=== PATIENT | male | born 1980 | race Caucasian/White ===

== ENCOUNTER 2017-09-08 05:52 | Inpatient (IN) | payer BC ==
[2017-09-08] MEDS ORDERED: Sodium Chloride 0.9% 10 ML Syringe FLUSH PRN ×2 (06:01→09:36)
[2017-09-08] MEDS ORDERED: methylPREDNISolone Sodium Succinate 125 MG/2 ML SDV IVPUSH ONE (06:02)
[2017-09-08] MEDS ORDERED: Albuterol/Ipratropium 3.0-0.5 MG/3 ML Neb Soln NEB ONE (06:02)
[2017-09-08] MEDS ORDERED: Sodium Chloride 0.9% 1,000 ML IV ONE (06:02)
[2017-09-08] MEDS: Sodium Chloride 0.9% 2.5 ML Syringe FLUSH PRN (06:07)
--- NOTE | 2017-09-08 06:08 | EDM.PDOC ---
ED HPI GENERAL MEDICAL PROBLEM - General Chief Complaint: Respiratory Problem Stated Complaint: TROUBLE BREATHING Time Seen by Provider: 09/08/17 05:57 - History of Present Illness INITIAL COMMENTS - FREE TEXT/NARRATIVE: HISTORY AND PHYSICAL: History of present illness: The patient is a 37-year-old male who arrives via EMS after he called for extreme shortness of breath and wheezing. Patient has a long-standing history of asthma but has not had to use steroids for the last 2-3 years due to reasonably good control on albuterol inhaler and nebulizer treatments. The patient does not use any maintenance therapy. The patient is not a smoker is around smokers at times. The patient is from [facility] and is here working and has been here for the last 1 week. He says over the last few days he has been having progressive dry hacking cough and increased wheezing and shortness of breath. He did not bring his nebulizer machine with him but has is inhaler and he has used it all. Patient has not had fevers vomiting abdominal pain chest pain diarrhea runny nose or sore throat. He is not sure what the trigger is that set off his asthma. His cough has been very dry and hacking and there has not been any phlegm. He has been trying to hydrate but he admits that he has been drinking caffeine as well. The patient did not get his influenza shot this year. EMS brought him here and his initial O2 sat on room air was 80% . He gave to uzair iyer in route and placed him on BiPAP removed on arrival here. Currently the patient says he started feeling better but still very tight with his air exchange and still feeling the wheezing and shortness of breath. Review of systems: As per history of present illness and below otherwise all systems reviewed and negative. Past medical history: As per history of present illness and as reviewed below otherwise noncontributory. Surgical history: As per history of present illness and as reviewed below otherwise noncontributory. Social history: No reported history of drug or alcohol abuse. Family history: As per history of present illness and as reviewed below otherwise noncontributory. Physical exam: General: Well-developed well-nourished man who is nontoxic and not breathless on my evaluation. His O2 sat on 5 L is 92-94%. Initially when the patient arrived he was on BiPAP which was removed by nursing and his room air O2 sat for us was 90%. HEENT: Atraumatic, normocephalic, pupils reactive, negative for conjunctival pallor or scleral icterus, mucous membranes moist, throat clear, neck supple, nontender, trachea midline. No cervical adenopathy or nuchal rigidity Lungs: Diminished air exchange throughout all lopez with expiratory wheezing but no abdominal worker breathing or intercostal muscle use breath sounds equal bilaterally, chest nontender. Heart: S1S2, regular rate and rhythm no overt murmurs Abdomen: Soft, nondistended, nontender. Negative for masses or hepatosplenomegaly. NABS Pelvis: Deferred Genitourinary: Deferred. Rectal: Deferred. Extremities: Atraumatic, negative for cords or calf pain. Neurovascular unremarkable. Full range of motion Neuro: Awake, alert, oriented. Cranial nerves II through XII unremarkable. Cerebellum unremarkable. Motor and sensory unremarkable throughout. Exam nonfocal. Skin: There is no diaphoresis and turgor is normal. There are no overt rashes or lesions Diagnostics: CBC CMP chest x-ray influenza swab EKG lactic acid Therapeutics: IV O2 monitor IV fluids Solu-Medrol duo neb 0625: After a third DuoNeb here the patient's O2 sat is 96% on 5 L and he is opening up with much more wheezing and air exchange throughout all lopez. He is currently feeling better and he is not tachycardic. I will rediscuss with him on 2 occasions that he will likely need observation admission for aggressive respiratory care steroids and further evaluation and he is comfortable with the admission. I will discuss this case with our hospitalist for observation. 0642: Case was discussed with Dr. Clifford who accepts the patient for observation admission. The patient is resting comfortably and will be transferred to his room once available. Impression: Acute asthma exacerbation with hypoxia Definitive disposition and diagnosis as appropriate pending reevaluation and review of above. neck Pain Score (Numeric/FACES): 6 - Related Data Allergies Allergy/AdvReac Type Severity Reaction Status Date / Time Penicillins Allergy Cannot Verified 09/08/17 06:07 Remember Home Meds: Home Meds Albuterol Sulfate [Ventolin Hfa] 0 gm IH ASDIRECTED 09/08/17 [History] Fexofenadine [Shavonne] 0 mg PO ASDIRECTED 09/08/17 [History] Nasocort 09/08/17 [History] Omeprazole 20 mg PO DAILY 09/08/17 [History] ED ROS GENERAL - Review of Systems Review Of Systems: ROS reveals no pertinent complaints other than HPI. ED EXAM, GENERAL - Physical Exam Exam: See Below (See dictation) Course - Vital Signs Last Recorded V/S: Last Vital Signs Temp 36.6 C 09/08/17 05:53 Pulse 92 09/08/17 06:15 Resp 21 H 09/08/17 06:15 BP 110/80 09/08/17 06:15 Pulse Ox 97 09/08/17 06:15 - Orders/Labs/Meds Orders: Active Orders 24 hr Category Date Time Status Patient Status [ADT] Stat ADT 09/08/17 06:28 Active Cardiac Monitoring [RC] . DIRECTED Care 09/08/17 06:01 Active EKG Documentation Completion [RC] STAT Care 09/08/17 06:01 Active Oxygen Therapy, ED [RC] ASDIRECTED Care 09/08/17 06:01 Active Pulse Oximetry [RC] ASDIRECTED Care 09/08/17 06:01 Active RT Aerosol Therapy [RC] ASDIRECTED Care 09/08/17 06:02 Active Chest 1V Frontal [CR] Stat Exams 09/08/17 06:01 Taken COMPREHENSIVE METABOLIC PN,CMP [CHEM] Stat Lab 09/08/17 06:17 Received Sodium Chloride 0.9% [Normal Saline] 1,000 ml Med 09/08/17 06:45 Active IV ASDIRECTED Sodium Chloride 0.9% [Normal Saline] 1,000 ml Med 09/08/17 06:02 Active IV STAT Sodium Chloride 0.9% [Saline Flush] Med 09/08/17 06:01 Active 10 ml FLUSH ASDIRECTED PRN Sodium Chloride 0.9% [Saline Flush] Med 09/08/17 06:01 Active 2.5 ml FLUSH ASDIRECTED PRN Saline Lock Insert [OM.PC] Stat Oth 09/08/17 06:01 Ordered Medication Orders Sodium Chloride (Normal Saline) 1,000 mls @ 999 mls/hr IV STAT ONE Stop: 09/08/17 07:02 Last Admin: 09/08/17 06:07 Dose: 999 mls/hr Sodium Chloride (Normal Saline) 1,000 mls @ 150 mls/hr IV ASDIRECTED DENNY Sodium Chloride (Saline Flush) 10 ml FLUSH ASDIRECTED PRN PRN Reason: Keep Vein Open Last Admin: 09/08/17 06:07 Dose: 10 ml Sodium Chloride (Saline Flush) 2.5 ml FLUSH ASDIRECTED PRN PRN Reason: Keep Vein Open Last Admin: 09/08/17 06:07 Dose: 2.5 ml Labs: Laboratory Tests 09/08/17 09/08/17 Range/Units 06:17 06:17 WBC 12.57 H (4.0-11.0) K/uL RBC 5.18 (4.50-5.90) M/uL Hgb 16.4 (13.0-17.0) g/dL Hct 46.9 (38.0-50.0) % MCV 90.5 (80.0-98.0) fL MCH 31.7 (27.0-32.0) pg MCHC 35.0 (31.0-37.0) g/dL RDW Std Deviation 44.6 (28.0-62.0) fl RDW Coeff of Mckenzie 14 (11.0-15.0) % Plt Count 179 (150-400) K/uL MPV 9.40 (7.40-12.00) fL Neut % (Auto) 68.7 (48.0-80.0) % Lymph % (Auto) 15.2 L (16.0-40.0) % [place] % (Auto) 5.2 (0.0-15.0) % Eos % (Auto) 10.3 H (0.0-7.0) % Baso % (Auto) 0.6 (0.0-1.5) % Neut # (Auto) 8.6 H (1.4-5.7) K/uL Lymph # (Auto) 1.9 (0.6-2.4) K/uL [place] # (Auto) 0.7 (0.0-0.8) K/uL Eos # (Auto) 1.3 H (0.0-0.7) K/uL Baso # (Auto) 0.1 (0.0-0.1) K/uL Nucleated RBC % 0.0 /100WBC Nucleated RBCs # 0 K/uL Lactate 1.2 (0.20-2.00) mmol/L Meds: Medications Generic Name Dose Route Start Last Admin Trade Name Freq PRN Reason Stop Dose Admin Sodium Chloride 1,000 mls @ 999 mls/hr 09/08/17 06:02 09/08/17 06:07 Normal Saline IV 09/08/17 07:02 999 mls/hr STAT ONE Administration Sodium Chloride 1,000 mls @ 150 mls/hr 09/08/17 06:45 Normal Saline IV ASDIRECTED DENNY Sodium Chloride 10 ml 09/08/17 06:01 09/08/17 06:07 Saline Flush FLUSH 10 ml ASDIRECTED PRN Administration Keep Vein Open Sodium Chloride 2.5 ml 09/08/17 06:01 09/08/17 06:07 Saline Flush FLUSH 2.5 ml ASDIRECTED PRN Administration Keep Vein Open Discontinued Medications Generic Name Dose Route Start Last Admin Trade Name Freq PRN Reason Stop Dose Admin Albuterol/Ipratropium 3 ml 09/08/17 06:02 09/08/17 06:08 Duoneb 3.0-0.5 Mg/3 Ml NEB 09/08/17 06:03 3 ml ONETIME ONE Administration Methylprednisolone Sodium Succinate 125 mg 09/08/17 06:02 09/08/17 06:09 Solu-Medrol IVPUSH 09/08/17 06:03 125 mg ONETIME ONE Administration Departure - Departure Time of Disposition: 06:47 Disposition: Refer to Observation Condition: Good Clinical Impression: Hypoxia Acute asthma exacerbation Qualifiers: Asthma severity: unspecified severity Asthma persistence: unspecified Qualified Code(s): J45.901 - Unspecified asthma with (acute) exacerbation - Discharge Information Referrals: PCP,None [Primary Care Provider] - Forms: ED Department Discharge - My Orders Last 24 Hours: My Active Orders 09/08/17 06:01 Cardiac Monitoring [RC] . DIRECTED EKG Documentation Completion [RC] STAT Oxygen Therapy, ED [RC] ASDIRECTED Pulse Oximetry [RC] ASDIRECTED Chest 1V Frontal [CR] Stat Sodium Chloride 0.9% [Saline Flush] 10 ml FLUSH ASDIRECTED PRN Sodium Chloride 0.9% [Saline Flush] 2.5 ml FLUSH ASDIRECTED PRN Saline Lock Insert [OM.PC] Stat 09/08/17 06:02 RT Aerosol Therapy [RC] ASDIRECTED Sodium Chloride 0.9% [Normal Saline] 1,000 ml IV STAT 09/08/17 06:17 COMPREHENSIVE METABOLIC PN,CMP [CHEM] Stat 09/08/17 06:28 Patient Status [ADT] Stat 09/08/17 06:45 Sodium Chloride 0.9% [Normal Saline] 1,000 ml IV ASDIRECTED - Assessment/Plan Last 24 Hours: My Active Orders 09/08/17 06:01 Cardiac Monitoring [RC] . DIRECTED EKG Documentation Completion [RC] STAT Oxygen Therapy, ED [RC] ASDIRECTED Pulse Oximetry [RC] ASDIRECTED Chest 1V Frontal [CR] Stat Sodium Chloride 0.9% [Saline Flush] 10 ml FLUSH ASDIRECTED PRN Sodium Chloride 0.9% [Saline Flush] 2.5 ml FLUSH ASDIRECTED PRN Saline Lock Insert [OM.PC] Stat 09/08/17 06:02 RT Aerosol Therapy [RC] ASDIRECTED Sodium Chloride 0.9% [Normal Saline] 1,000 ml IV STAT 09/08/17 06:17 COMPREHENSIVE METABOLIC PN,CMP [CHEM] Stat 09/08/17 06:28 Patient Status [ADT] Stat 09/08/17 06:45 Sodium Chloride 0.9% [Normal Saline] 1,000 ml IV ASDIRECTED
[2017-09-08 06:45] LABS: CHLORIDE,CL 108 mmol/L (98-110); SODIUM,NA 143 mmol/L (136-146)
[2017-09-08] MEDS ORDERED: Sodium Chloride 0.9% 1,000 ML IV SCH (06:45)
[2017-09-08] MEDS ORDERED: predniSONE 20 MG Tab PO SCH (08:00)
--- NOTE | 2017-09-08 08:49 | PCM.HP ---
H&P History of Present Illness - General Date of Service: 09/08/17 Admit Problem/Dx: Admission Diagnosis/Problem Admission Diagnosis/Problem Asthma in adult Source of Information: Patient History Limitations: Reports: No Limitations - History of Present Illness Initial Comments - Free Text/Narative: Ignacio is a 37-year-old male who is being admitted today secondary to acute asthma exacerbation. Patient was brought in via EMS on BiPAP secondary to severe respiratory difficulty. However while in the ER he was taken off BiPAP he was given some albuterol 125 mg, as well as duo nebs which didn't help bring his shortness of breath under control. Patient states that he has had asthma since childhood however he cannot recall the last time he ever had a acute asthma exacerbation such as the one he is experienced during this admission. Patient states that his symptoms started over the weekend. His only asthma medication is albuterol which she very rarely requires, he is not on any maintenance therapy patient states that over the course of the last 3 days he's been requiring albuterol constantly almost every 4 hours and more so at night. He did not have any resolution of his symptoms with the albuterol and it was so severe to the point today where he required EMS service. He does not know of any allergic trigger that exacerbated his asthma. He states that he does not smoke and does not drink or take any other illicit drugs. His only other medication is a PPI secondary to gastroesophageal reflux disease. ER course: She received 1 dose of duo nebs, IV Solu-Medrol 125 mg dose, and was subsequently admitted to the floor. Onset of Symptoms: Reports: Sudden neck Pain Score (Numeric/FACES): 6 - Related Data Allergies/Adverse Reactions: Allergies Allergy/AdvReac Type Severity Reaction Status Date / Time Penicillins Allergy Cannot Verified 09/08/17 06:07 Remember Home Medications: Home Meds Albuterol Sulfate [Ventolin Hfa] 0 gm IH ASDIRECTED 09/08/17 [History] Fexofenadine [Shavonne] 0 mg PO ASDIRECTED 09/08/17 [History] Nasocort 09/08/17 [History] Omeprazole 20 mg PO DAILY 09/08/17 [History] Past Medical History - Past Health History Medical/Surgical History: Denies Medical/Surgical History Respiratory History: Reports: Asthma Gastrointestinal History: Reports: GERD - Infectious Disease History Infectious Disease History: Reports: Chicken Pox - Past Surgical History GI Surgical History: Reports: Appendectomy Musculoskeletal Surgical History: Reports: Other (See Below) Other Musculoskeletal Surgeries/Procedures:: ankle sx Social & Family History - Family History Family Medical History: Noncontributory - Tobacco Use Smoking Status *Q: Never Smoker Second Hand Smoke Exposure: No - Caffeine Use Caffeine Use: Reports: Coffee, Energy Drinks, Soda, Tea - Recreational Drug Use Recreational Drug Use: No H&P Review of Systems - Review of Systems: Review Of Systems: ROS reveals no pertinent complaints other than HPI. Exam - Exam Exam: See Below - Vital Signs Vital Signs: Last Vital Signs Temp 36.6 C 09/08/17 07:45 Pulse 93 09/08/17 07:50 Resp 12 09/08/17 07:50 BP 127/82 09/08/17 07:50 Pulse Ox 93 L 09/08/17 07:50 Weight: 93.304 kg - Exam Quality Assessment: Supplemental Oxygen General: Alert, Oriented, Cooperative, Mild Distress HEENT: Conjunctiva Clear, EOMI Neck: Supple Lungs: Wheezing Cardiovascular: Regular Rate, Regular Rhythm GI/Abdominal Exam: Normal Bowel Sounds Extremities: Normal Inspection, Normal Range of Motion - Patient Data Result Diagrams: 09/08/17 06:17 09/08/17 06:17 *Q Meaningful Use (ADM) - VTE *Q VTE Criteria *Q: - Stroke *Q Stroke Criteria *Q: - AMI *Q AMI Criteria *Q: - Problem List (1) Acute asthma exacerbation SNOMED Code(s): 471133819 ICD Code: J45.901 - UNSPECIFIED ASTHMA WITH (ACUTE) EXACERBATION Status: Acute Current Visit: Yes Qualifiers: Asthma severity: unspecified severity Asthma persistence: unspecified Qualified Code(s): J45.901 - Unspecified asthma with (acute) exacerbation (2) Hypoxia SNOMED Code(s): 876298311 ICD Code: R09.02 - HYPOXEMIA Status: Acute Current Visit: Yes Problem List Initiated/Reviewed/Updated: Yes Orders Last 24hrs: Active Orders 24 hr Category Date Time Status Sodium Chloride 0.9% [Normal Saline] 1,000 ml Med 09/08/17 06:45 Active IV ASDIRECTED Medication Orders Sodium Chloride (Normal Saline) 1,000 mls @ 150 mls/hr IV ASDIRECTED DENNY Last Admin: 09/08/17 07:04 Dose: 150 mls/hr Sodium Chloride (Saline Flush) 10 ml FLUSH ASDIRECTED PRN PRN Reason: Keep Vein Open Last Admin: 09/08/17 06:07 Dose: 10 ml Sodium Chloride (Saline Flush) 2.5 ml FLUSH ASDIRECTED PRN PRN Reason: Keep Vein Open Last Admin: 09/08/17 06:07 Dose: 2.5 ml Assessment/Plan Comment:: Impressions: This is a 37-year-old male presenting with acute hypoxia , shortness of breath, dyspnea on exertion secondary to acute exacerbation of asthma. Assessment: #1. Hypoxia, shortness of breath, bronchospasms secondary to acute asthma exacerbation #2. History of gastroesophageal reflux disease, and asthma Plan: #1. Admit patient under observation status for acute asthma exacerbation, likely length of stay less than 2 midnights. Patient is full code #2. Vitals per unit protocol, continuous pulse oximetry, peripheral IV and with saline lock, up with assistance, regular diet #3. For the hypoxia, shortness of breath, bronchospasms patient shall receive DuoNeb's every 4 hr prn, Solu-Medrol 40 mg IV twice a day, O2 support as needed with titration back to room air as tolerated #4. Recheck patient status in the a.m. and if he is stable on room air no longer in respiratory distress patient can be discharged with follow-up with PCP #5. Shall continue to follow.
[2017-09-08] MEDS ORDERED: Ondansetron 4 MG/2 ML SDV IVPUSH PRN (09:36)
[2017-09-08] MEDS ORDERED: Sodium Chloride 0.9% 2.5 ML Syringe FLUSH PRN (09:36)
[2017-09-08] MEDS ORDERED: methylPREDNISolone Sodium Succinate 40 MG/1 ML SDV IVPUSH SCH (10:00)
--- NOTE | 2017-09-08 10:35 | CR ---
EXAM DATE: 09/08/17 PATIENT'S AGE: 37 Patient: JENNIFER PIZARRO Facility: [place], [place] Site . Site : 1980 Study: XRay Chest [id number]/14/2018 6:19:59 AM Ordering Physician: Mala Dietrich Final Report: INDICATION: Chest pain. Shortness of breath. TECHNIQUE: AP portable upright chest. FINDINGS: Clear lungs. Normal heart size and pulmonary vascularity. Old left clavicular fracture. IMPRESSION: No acute cardiopulmonary process identified. Dictated by Kristopher Ambroiso MD @ Sep 08 2017 6:24AM (Electronic Signature) Report Signed by Proxy. RAJI
[2017-09-08] MEDS: Acetaminophen 325 MG Tab PO PRN (12:40)
[2017-09-08] MEDS: Albuterol/Ipratropium 3.0-0.5 MG/3 ML Neb Soln NEB PRN ×2 (15:12→21:37)
[2017-09-08] MEDS: methylPREDNISolone Sodium Succinate 40 MG/1 ML SDV IVPUSH SCH (18:24)
[2017-09-09] MEDS: Albuterol/Ipratropium 3.0-0.5 MG/3 ML Neb Soln NEB PRN ×3 (01:40→10:25)
[2017-09-09] MEDS: methylPREDNISolone Sodium Succinate 40 MG/1 ML SDV IVPUSH SCH (05:38)
[2017-09-09 06:14] LABS: CHLORIDE,CL 108 mmol/L (98-110); SODIUM,NA 140 mmol/L (136-146)
[2017-09-09] MEDS: Azithromycin 250 MG Tab PO SCH (10:38)
--- NOTE | 2017-09-09 11:38 | PCM.PN ---
- General Info Date of Service: 09/09/17 Admission Dx/Problem (Free Text): Patient's chest tightness is still present, he is requiring less oxygen at this point than yesterday. He is still wheezing, he is still having dyspnea on very mild exertion. He is denying any fevers, chills, nausea, vomiting, diarrhea, constipation or any systemic signs of infection. We will continue to follow likely increase the patient's prednisone to see if this will allow the patient to get better. Functional Status: Reports: Pain Controlled - Review of Systems General: Reports: Weakness HEENT: Reports: No Symptoms Pulmonary: Reports: Shortness of Breath, Wheezing Cardiovascular: Reports: No Symptoms Gastrointestinal: Reports: No Symptoms Musculoskeletal: Reports: No Symptoms - Patient Data Vitals - Most Recent: Last Vital Signs Temp 36.9 C 09/09/17 08:47 Pulse 82 09/09/17 08:47 Resp 14 09/09/17 08:47 BP 112/69 09/09/17 08:47 Pulse Ox 90 L 09/09/17 09:38 Weight - Most Recent: 91.263 kg I&O - Last 24 Hours: Intake & Output 09/08/17 09/09/17 09/09/17 22:59 06:59 14:59 Intake Total 1200 1150 Output Total 1700 980 Balance -500 170 Lab Results Last 24 Hours: Laboratory Results - last 24 hr 09/09/17 09/09/17 Range/Units 05:19 05:19 WBC 18.68 H (4.0-11.0) K/uL RBC 4.94 (4.50-5.90) M/uL Hgb 15.6 (13.0-17.0) g/dL Hct 44.6 (38.0-50.0) % MCV 90.3 (80.0-98.0) fL MCH 31.6 (27.0-32.0) pg MCHC 35.0 (31.0-37.0) g/dL RDW Std Deviation 43.6 (28.0-62.0) fl RDW Coeff of Mckenzie 13 (11.0-15.0) % Plt Count 199 (150-400) K/uL MPV 9.70 (7.40-12.00) fL Neut % (Auto) 88.8 H (48.0-80.0) % Lymph % (Auto) 5.6 L (16.0-40.0) % [place] % (Auto) 5.4 (0.0-15.0) % Eos % (Auto) 0.1 (0.0-7.0) % Baso % (Auto) 0.1 (0.0-1.5) % Neut # (Auto) 16.6 H (1.4-5.7) K/uL Lymph # (Auto) 1.0 (0.6-2.4) K/uL [place] # (Auto) 1.0 H (0.0-0.8) K/uL Eos # (Auto) 0.0 (0.0-0.7) K/uL Baso # (Auto) 0.0 (0.0-0.1) K/uL Nucleated RBC % 0.0 /100WBC Nucleated RBCs # 0 K/uL Sodium 140 (136-146) mmol/L Potassium 4.4 (3.5-5.1) mmol/L Chloride 108 (98-110) mmol/L Carbon Dioxide 23 (21-31) mmol/L BUN 14 (6.0-23.0) mg/dL Creatinine 0.8 (0.6-1.5) mg/dL Est Cr Clr Drug Dosing 128.00 mL/min Estimated GFR (MDRD) > 60.0 ml/min Glucose 127 H (60-110) mg/dL Calcium 9.2 (8.8-10.8) mg/dL Med Orders - Current: Current Medications Acetaminophen (Tylenol) 650 mg PO Q4H PRN PRN Reason: Pain (Mild 1-3)/fever Last Admin: 09/08/17 12:40 Dose: 650 mg Albuterol/Ipratropium (Duoneb 3.0-0.5 Mg/3 Ml) 3 ml NEB Q4HRRT PRN PRN Reason: Shortness Of Breath/wheezing Last Admin: 09/09/17 10:25 Dose: 3 ml Albuterol/Ipratropium (Duoneb 3.0-0.5 Mg/3 Ml) 3 ml NEB Q4HRRT DENNY Azithromycin (Zithromax) 500 mg PO Q24H DENNY Last Admin: 09/09/17 10:38 Dose: 500 mg Methylprednisolone Sodium Succinate (Solu-Medrol) 60 mg IVPUSH Q8H DENNY Ondansetron HCl (Zofran) 4 mg IVPUSH Q4H PRN PRN Reason: Nausea/Vomiting Sodium Chloride (Saline Flush) 10 ml FLUSH ASDIRECTED PRN PRN Reason: Keep Vein Open Last Admin: 09/08/17 06:07 Dose: 10 ml Sodium Chloride (Saline Flush) 2.5 ml FLUSH ASDIRECTED PRN PRN Reason: Keep Vein Open Last Admin: 09/08/17 06:07 Dose: 2.5 ml Sodium Chloride (Saline Flush) 10 ml FLUSH ASDIRECTED PRN PRN Reason: Keep Vein Open Sodium Chloride (Saline Flush) 2.5 ml FLUSH ASDIRECTED PRN PRN Reason: Keep Vein Open Discontinued Medications Albuterol/Ipratropium (Duoneb 3.0-0.5 Mg/3 Ml) 3 ml NEB ONETIME ONE Stop: 09/08/17 06:03 Last Admin: 09/08/17 06:08 Dose: 3 ml Sodium Chloride (Normal Saline) 1,000 mls @ 999 mls/hr IV STAT ONE Stop: 09/08/17 07:02 Last Admin: 09/08/17 06:07 Dose: 999 mls/hr Sodium Chloride (Normal Saline) 1,000 mls @ 150 mls/hr IV ASDIRECTED DENNY Last Admin: 09/08/17 07:04 Dose: 150 mls/hr Methylprednisolone Sodium Succinate (Solu-Medrol) 125 mg IVPUSH ONETIME ONE Stop: 09/08/17 06:03 Last Admin: 09/08/17 06:09 Dose: 125 mg Methylprednisolone Sodium Succinate (Solu-Medrol) 40 mg IVPUSH Q12H [facility] Last Admin: 09/08/17 10:53 Dose: Not Given Methylprednisolone Sodium Succinate (Solu-Medrol) 40 mg IVPUSH Q12H [facility] Last Admin: 09/09/17 05:38 Dose: 40 mg Prednisone (Prednisone) 40 mg PO WITHBREAKFAST [facility] Last Admin: 09/08/17 10:53 Dose: Not Given - Exam Quality Assessment: Supplemental Oxygen General: Alert, Oriented, Cooperative, Mild Distress HEENT: Pupils Equal, Pupils Reactive, EOMI Neck: Supple Lungs: Wheezing Cardiovascular: Regular Rate, Regular Rhythm GI/Abdominal Exam: Normal Bowel Sounds Extremities: Normal Inspection, Normal Range of Motion - Problem List & Annotations (1) Acute asthma exacerbation SNOMED Code(s): 572953459 Code(s): J45.901 - UNSPECIFIED ASTHMA WITH (ACUTE) EXACERBATION Status: Acute Current Visit: Yes Qualifiers: Asthma severity: unspecified severity Asthma persistence: unspecified Qualified Code(s): J45.901 - Unspecified asthma with (acute) exacerbation (2) Hypoxia SNOMED Code(s): 984124158 Code(s): R09.02 - HYPOXEMIA Status: Acute Current Visit: Yes - Problem List Review Problem List Initiated/Reviewed/Updated: Yes - My Orders Last 24 Hours: My Active Orders 09/09/17 10:36 RT Aerosol Therapy [RC] ASDIRECTED 09/09/17 14:00 Albuterol/Ipratropium [DuoNeb 3.0-0.5 MG/3 ML] 3 ml NEB Q4HRRT - Plan Plan:: Impressions: This is a 37-year-old male presenting with acute hypoxia , shortness of breath, dyspnea on exertion secondary to acute exacerbation of asthma. Assessment: #1. Hypoxia, shortness of breath, bronchospasms secondary to acute asthma exacerbation #2. History of gastroesophageal reflux disease, and asthma Plan: 1. Asthma exacerbation- continue with oxygen supplementation as needed for the patient, increasing the Solu-Medrol to every 8 hours hours 60 mg. Patient to get scheduled DuoNeb nebs Q4hrs. 2. Recheck patient status in the a.m. and if he is stable on room air no longer in respiratory distress patient can be discharged with follow-up with PCP 3. Shall continue to follow.
[2017-09-09] MEDS: methylPREDNISolone Sodium Succinate 125 MG/2 ML SDV IVPUSH SCH ×2 (14:34→21:18)
[2017-09-09] MEDS: Sodium Chloride 0.9% 2.5 ML Syringe FLUSH PRN (14:37)
[2017-09-09] MEDS: Albuterol/Ipratropium 3.0-0.5 MG/3 ML Neb Soln NEB SCH ×3 (15:11→21:12)
[2017-09-09] MEDS: Acetaminophen 325 MG Tab PO PRN (17:59)
[2017-09-10] MEDS: Albuterol/Ipratropium 3.0-0.5 MG/3 ML Neb Soln NEB SCH ×6 (00:59→21:11)
[2017-09-10] MEDS: Acetaminophen 325 MG Tab PO PRN ×5 (01:16→19:33)
[2017-09-10] MEDS: methylPREDNISolone Sodium Succinate 125 MG/2 ML SDV IVPUSH SCH ×3 (05:02→20:44)
[2017-09-10] MEDS: Azithromycin 250 MG Tab PO SCH (09:31)
[2017-09-10 11:11] LABS: CHLORIDE,CL 107 mmol/L (98-110); SODIUM,NA 139 mmol/L (136-146)
--- NOTE | 2017-09-10 18:02 | PCM.PN ---
- General Info Date of Service: 09/10/17 Subjective Update: Patient is still experiencing chest tightness and wheezing secondary to his acute asthma exacerbation. He has improved in terms of his breathing since admission but it just appears that he is going to need a longer time frame in terms of getting over his acute exacerbation. We will likely increase the steroid dose and continue with the azithromycin if the patient's symptoms do not improve over the next 24 hours. Chills, nausea vomiting, or any other symptoms aside from shortness of breath and wheezing. - Review of Systems General: Reports: Weakness Pulmonary: Reports: Shortness of Breath, Wheezing - Patient Data Vitals - Most Recent: Last Vital Signs Temp 36.7 C 09/10/17 15:51 Pulse 118 H 09/10/17 15:51 Resp 18 09/10/17 15:51 BP 141/72 H 09/10/17 15:51 Pulse Ox 91 L 09/10/17 15:51 Weight - Most Recent: 91.263 kg I&O - Last 24 Hours: Intake & Output 09/10/17 09/10/17 09/10/17 06:59 14:59 22:59 Intake Total 520 Output Total 1050 Balance -530 Lab Results Last 24 Hours: Laboratory Results - last 24 hr 09/10/17 09/10/17 Range/Units 10:37 10:37 WBC 18.15 H (4.0-11.0) K/uL RBC 4.92 (4.50-5.90) M/uL Hgb 15.5 (13.0-17.0) g/dL Hct 44.4 (38.0-50.0) % MCV 90.2 (80.0-98.0) fL MCH 31.5 (27.0-32.0) pg MCHC 34.9 (31.0-37.0) g/dL RDW Std Deviation 44.5 (28.0-62.0) fl RDW Coeff of Mckenzie 14 (11.0-15.0) % Plt Count 201 (150-400) K/uL MPV 9.30 (7.40-12.00) fL Add Manual Diff YES Neutrophils % (Manual) 87 H (48.0-80.0) % Band Neutrophils % 4 % Lymphocytes % (Manual) 4 L (16.0-40.0) % Monocytes % (Manual) 5 (0.0-15.0) % Nucleated RBC % 0.0 /100WBC Absolute Seg Neuts 15.8 H (1.4-5.7) Band Neutrophils # 0.7 Lymphocytes # (Manual) 0.7 (0.6-2.4) Monocytes # (Manual) 0.9 H (0.0-0.8) Nucleated RBCs # 0 K/uL Sodium 139 (136-146) mmol/L Potassium 4.2 (3.5-5.1) mmol/L Chloride 107 (98-110) mmol/L Carbon Dioxide 24 (21-31) mmol/L BUN 16 (6.0-23.0) mg/dL Creatinine 0.8 (0.6-1.5) mg/dL Est Cr Clr Drug Dosing 128.00 mL/min Estimated GFR (MDRD) > 60.0 ml/min Glucose 142 H (60-110) mg/dL Calcium 9.2 (8.8-10.8) mg/dL Med Orders - Current: Current Medications Acetaminophen (Tylenol) 650 mg PO Q4H PRN PRN Reason: Pain (Mild 1-3)/fever Last Admin: 09/10/17 13:37 Dose: 650 mg Albuterol/Ipratropium (Duoneb 3.0-0.5 Mg/3 Ml) 3 ml NEB Q4HRRT PRN PRN Reason: Shortness Of Breath/wheezing Last Admin: 09/09/17 10:25 Dose: 3 ml Albuterol/Ipratropium (Duoneb 3.0-0.5 Mg/3 Ml) 3 ml NEB Q4HRRT [facility] Last Admin: 09/10/17 15:11 Dose: 3 ml Azithromycin (Zithromax) 500 mg PO Q24H [facility] Last Admin: 09/10/17 09:31 Dose: 500 mg Methylprednisolone Sodium Succinate (Solu-Medrol) 60 mg IVPUSH Q8H [facility] Last Admin: 09/10/17 13:04 Dose: 60 mg Ondansetron HCl (Zofran) 4 mg IVPUSH Q4H PRN PRN Reason: Nausea/Vomiting Sodium Chloride (Saline Flush) 10 ml FLUSH ASDIRECTED PRN PRN Reason: Keep Vein Open Last Admin: 09/08/17 06:07 Dose: 10 ml Sodium Chloride (Saline Flush) 2.5 ml FLUSH ASDIRECTED PRN PRN Reason: Keep Vein Open Last Admin: 09/09/17 14:37 Dose: 2.5 ml Sodium Chloride (Saline Flush) 10 ml FLUSH ASDIRECTED PRN PRN Reason: Keep Vein Open Sodium Chloride (Saline Flush) 2.5 ml FLUSH ASDIRECTED PRN PRN Reason: Keep Vein Open Discontinued Medications Albuterol/Ipratropium (Duoneb 3.0-0.5 Mg/3 Ml) 3 ml NEB ONETIME ONE Stop: 09/08/17 06:03 Last Admin: 09/08/17 06:08 Dose: 3 ml Sodium Chloride (Normal Saline) 1,000 mls @ 999 mls/hr IV STAT ONE Stop: 09/08/17 07:02 Last Admin: 09/08/17 06:07 Dose: 999 mls/hr Sodium Chloride (Normal Saline) 1,000 mls @ 150 mls/hr IV ASDIRECTED [facility] Last Admin: 09/08/17 07:04 Dose: 150 mls/hr Methylprednisolone Sodium Succinate (Solu-Medrol) 125 mg IVPUSH ONETIME ONE Stop: 09/08/17 06:03 Last Admin: 09/08/17 06:09 Dose: 125 mg Methylprednisolone Sodium Succinate (Solu-Medrol) 40 mg IVPUSH Q12H [facility] Last Admin: 09/08/17 10:53 Dose: Not Given Methylprednisolone Sodium Succinate (Solu-Medrol) 40 mg IVPUSH Q12H [facility] Last Admin: 09/09/17 05:38 Dose: 40 mg Prednisone (Prednisone) 40 mg PO WITHBREAKFAST [facility] Last Admin: 09/08/17 10:53 Dose: Not Given - Exam Quality Assessment: Supplemental Oxygen General: Alert, Oriented, Cooperative, Mild Distress HEENT: Pupils Equal, Pupils Reactive Neck: Supple Lungs: Wheezing Cardiovascular: Regular Rate, Regular Rhythm, Tachycardia GI/Abdominal Exam: Normal Bowel Sounds Extremities: Normal Inspection, No Pedal Edema, Normal Capillary Refill - Problem List & Annotations (1) Acute asthma exacerbation SNOMED Code(s): 313544226 Code(s): J45.901 - UNSPECIFIED ASTHMA WITH (ACUTE) EXACERBATION Status: Acute Current Visit: Yes Qualifiers: Asthma severity: unspecified severity Asthma persistence: unspecified Qualified Code(s): J45.901 - Unspecified asthma with (acute) exacerbation (2) Hypoxia SNOMED Code(s): 155418257 Code(s): R09.02 - HYPOXEMIA Status: Acute Current Visit: Yes - Problem List Review Problem List Initiated/Reviewed/Updated: Yes - Plan Plan:: Impressions: This is a 37-year-old male presenting with acute hypoxia , shortness of breath, dyspnea on exertion secondary to acute exacerbation of asthma. Assessment: #1. Hypoxia, shortness of breath, bronchospasms secondary to acute asthma exacerbation #2. History of gastroesophageal reflux disease, and asthma Plan: 1. Asthma exacerbation- patient's asthma exacerbation and also continuing, he is still requiring 2 L of O2 support. Continue with albuterol 60 mg every 8 hours reassess the patient in the morning continue with scheduled nebs, and tinea with azithromycin antibiotics. 2. Recheck patient status in the a.m. and if he is stable on room air no longer in respiratory distress patient can be discharged with follow-up with PCP 3. Shall continue to follow.
[2017-09-10] MEDS: Enoxaparin 30 MG/0.3 ML Syringe SUBCUT SCH (20:43)
[2017-09-11] MEDS: Albuterol/Ipratropium 3.0-0.5 MG/3 ML Neb Soln NEB SCH ×6 (01:12→21:41)
[2017-09-11] MEDS: Acetaminophen 325 MG Tab PO PRN ×4 (01:29→19:05)
[2017-09-11] MEDS: methylPREDNISolone Sodium Succinate 125 MG/2 ML SDV IVPUSH SCH ×3 (05:24→20:50)
[2017-09-11 06:46] LABS: CHLORIDE,CL 106 mmol/L (98-110); SODIUM,NA 139 mmol/L (136-146)
[2017-09-11] MEDS: Azithromycin 250 MG Tab PO SCH (10:43)
--- NOTE | 2017-09-11 13:05 | PCM.PN ---
- General Info Date of Service: 09/11/17 Subjective Update: Patient is still having long tightness, we did ambulate and walking without oxygen and his O2 saturations dropped to 84-88%. Patient denies any fevers chills or productive sputum. Patient denies fevers, chills, nausea, vomiting or any other infectious issues. - Review of Systems General: Reports: Weakness Pulmonary: Reports: Shortness of Breath - Patient Data Vitals - Most Recent: Last Vital Signs Temp 36.7 C 09/11/17 12:00 Pulse 70 09/11/17 12:00 Resp 16 09/11/17 12:00 BP 124/67 09/11/17 12:00 Pulse Ox 92 L 09/11/17 12:00 Weight - Most Recent: 91.263 kg I&O - Last 24 Hours: Intake & Output 09/10/17 09/11/17 09/11/17 22:59 06:59 14:59 Intake Total 520 400 Output Total 1050 1000 Balance -530 -600 Lab Results Last 24 Hours: Laboratory Results - last 24 hr 09/11/17 09/11/17 Range/Units 06:15 06:15 WBC 17.97 H (4.0-11.0) K/uL RBC 5.01 (4.50-5.90) M/uL Hgb 15.4 (13.0-17.0) g/dL Hct 45.5 (38.0-50.0) % MCV 90.8 (80.0-98.0) fL MCH 30.7 (27.0-32.0) pg MCHC 33.8 (31.0-37.0) g/dL RDW Std Deviation 44.3 (28.0-62.0) fl RDW Coeff of Mckenzie 14 (11.0-15.0) % Plt Count 218 (150-400) K/uL MPV 9.30 (7.40-12.00) fL Neut % (Auto) 89.2 H (48.0-80.0) % Lymph % (Auto) 6.0 L (16.0-40.0) % [place] % (Auto) 4.7 (0.0-15.0) % Eos % (Auto) 0.0 (0.0-7.0) % Baso % (Auto) 0.1 (0.0-1.5) % Neut # (Auto) 16.0 H (1.4-5.7) K/uL Lymph # (Auto) 1.1 (0.6-2.4) K/uL [place] # (Auto) 0.9 H (0.0-0.8) K/uL Eos # (Auto) 0.0 (0.0-0.7) K/uL Baso # (Auto) 0.0 (0.0-0.1) K/uL Nucleated RBC % 0.0 /100WBC Nucleated RBCs # 0 K/uL Sodium 139 (136-146) mmol/L Potassium 4.3 (3.5-5.1) mmol/L Chloride 106 (98-110) mmol/L Carbon Dioxide 25 (21-31) mmol/L BUN 18 (6.0-23.0) mg/dL Creatinine 0.8 (0.6-1.5) mg/dL Est Cr Clr Drug Dosing 128.00 mL/min Estimated GFR (MDRD) > 60.0 ml/min Glucose 126 H (60-110) mg/dL Calcium 9.0 (8.8-10.8) mg/dL Total Bilirubin 0.6 (0.1-1.5) mg/dL AST 9 (5-40) IU/L ALT 23 (8-54) IU/L Alkaline Phosphatase 72 (40-150) Total Protein 6.0 (6.0-8.0) g/dL Albumin 3.7 (3.5-5.0) g/dL Globulin 2.3 (2.0-3.5) g/dL Albumin/Globulin Ratio 1.6 (1.3-2.8) Med Orders - Current: Current Medications Acetaminophen (Tylenol) 650 mg PO Q4H PRN PRN Reason: Pain (Mild 1-3)/fever Last Admin: 09/11/17 12:09 Dose: 650 mg Albuterol/Ipratropium (Duoneb 3.0-0.5 Mg/3 Ml) 3 ml NEB Q4HRRT PRN PRN Reason: Shortness Of Breath/wheezing Last Admin: 09/09/17 10:25 Dose: 3 ml Albuterol/Ipratropium (Duoneb 3.0-0.5 Mg/3 Ml) 3 ml NEB Q4HRRT [facility] Last Admin: 09/11/17 10:02 Dose: 3 ml Azithromycin (Zithromax) 500 mg PO Q24H [facility] Last Admin: 09/11/17 10:43 Dose: 500 mg Enoxaparin Sodium (Lovenox) 30 mg SUBCUT Q24H [facility] Last Admin: 09/10/17 20:43 Dose: 30 mg Methylprednisolone Sodium Succinate (Solu-Medrol) 60 mg IVPUSH Q8H [facility] Last Admin: 09/11/17 05:24 Dose: 60 mg Ondansetron HCl (Zofran) 4 mg IVPUSH Q4H PRN PRN Reason: Nausea/Vomiting Sodium Chloride (Saline Flush) 10 ml FLUSH ASDIRECTED PRN PRN Reason: Keep Vein Open Last Admin: 09/08/17 06:07 Dose: 10 ml Sodium Chloride (Saline Flush) 2.5 ml FLUSH ASDIRECTED PRN PRN Reason: Keep Vein Open Last Admin: 09/09/17 14:37 Dose: 2.5 ml Sodium Chloride (Saline Flush) 10 ml FLUSH ASDIRECTED PRN PRN Reason: Keep Vein Open Sodium Chloride (Saline Flush) 2.5 ml FLUSH ASDIRECTED PRN PRN Reason: Keep Vein Open Discontinued Medications Albuterol/Ipratropium (Duoneb 3.0-0.5 Mg/3 Ml) 3 ml NEB ONETIME ONE Stop: 09/08/17 06:03 Last Admin: 09/08/17 06:08 Dose: 3 ml Sodium Chloride (Normal Saline) 1,000 mls @ 999 mls/hr IV STAT ONE Stop: 09/08/17 07:02 Last Admin: 09/08/17 06:07 Dose: 999 mls/hr Sodium Chloride (Normal Saline) 1,000 mls @ 150 mls/hr IV ASDIRECTED [facility] Last Admin: 09/08/17 07:04 Dose: 150 mls/hr Methylprednisolone Sodium Succinate (Solu-Medrol) 125 mg IVPUSH ONETIME ONE Stop: 09/08/17 06:03 Last Admin: 09/08/17 06:09 Dose: 125 mg Methylprednisolone Sodium Succinate (Solu-Medrol) 40 mg IVPUSH Q12H [facility] Last Admin: 09/08/17 10:53 Dose: Not Given Methylprednisolone Sodium Succinate (Solu-Medrol) 40 mg IVPUSH Q12H [facility] Last Admin: 09/09/17 05:38 Dose: 40 mg Prednisone (Prednisone) 40 mg PO WITHBREAKFAST [facility] Last Admin: 09/08/17 10:53 Dose: Not Given - Exam Quality Assessment: Supplemental Oxygen General: Alert, Oriented, Cooperative, Mild Distress HEENT: Pupils Equal Lungs: Wheezing Cardiovascular: Regular Rate, Regular Rhythm GI/Abdominal Exam: Normal Bowel Sounds Extremities: Normal Inspection, Normal Range of Motion, Non-Tender - Problem List & Annotations (1) Acute asthma exacerbation SNOMED Code(s): 676497236 Code(s): J45.901 - UNSPECIFIED ASTHMA WITH (ACUTE) EXACERBATION Status: Acute Current Visit: Yes Qualifiers: Asthma severity: unspecified severity Asthma persistence: unspecified Qualified Code(s): J45.901 - Unspecified asthma with (acute) exacerbation (2) Hypoxia SNOMED Code(s): 796455492 Code(s): R09.02 - HYPOXEMIA Status: Acute Current Visit: Yes - Problem List Review Problem List Initiated/Reviewed/Updated: Yes - Plan Plan:: Impressions: This is a 37-year-old male presenting with acute hypoxia , shortness of breath, dyspnea on exertion secondary to acute exacerbation of asthma. Assessment: #1. Hypoxia, shortness of breath, bronchospasms secondary to acute asthma exacerbation #2. History of gastroesophageal reflux disease, and asthma Plan: 1. Asthma exacerbation- patient's asthma exacerbation and also continuing, he is still requiring 2 L of O2 support. Continue with albuterol 60 mg every 8 hours. -Continue with azithromycin, continue with same dose of Solu-Medrol reassessed tomorrow 2. Recheck patient status in the a.m. and if he is stable on room air no longer in respiratory distress patient can be discharged with follow-up with PCP 3. Shall continue to follow.
[2017-09-11] MEDS: Enoxaparin 30 MG/0.3 ML Syringe SUBCUT SCH (19:02)
[2017-09-12] MEDS: Albuterol/Ipratropium 3.0-0.5 MG/3 ML Neb Soln NEB SCH ×3 (02:26→10:12)
[2017-09-12] MEDS: Acetaminophen 325 MG Tab PO PRN ×2 (02:26→06:34)
[2017-09-12] MEDS: methylPREDNISolone Sodium Succinate 125 MG/2 ML SDV IVPUSH SCH (06:00)
[2017-09-12] MEDS: Azithromycin 250 MG Tab PO SCH (09:51)
--- NOTE | 2017-09-12 11:37 | PCM.DCSUM1 ---
Discharge Summary - Discharge Data Discharge Date: 09/12/17 Discharge Disposition: Home, Self-Care 01 Condition: Stable - Patient Summary/Data Hospital Course: Admission diagnosis: Asthma exacerbation Discharge diagnosis Asthma exacerbation Hospital Course; Alisia is a 37-year-old male with pmh of Asthma who presented with shortness of breath, wheezing, and increase use of his rescue inhaler for past three days.. He did call EMS and he was brought to the ED on BIPAP. He was treat with duonebs, and IV solumderol and quickly weaned down to nasal canula use. He was admitted of asthma exacerbation and treated with solumedrol, dueonebs and azithromycin. He did have gradual daily improvements and today he is satting 94% on RA. He is agreeable to discharge. He will discharged on prednisone and azithromycin for three more days as well as albuterol rescue inhaler and Advair. - Patient Instructions Diet: Regular Diet as Tolerated - Discharge Plan Prescriptions/Med Rec: Albuterol Sulfate [Ventolin Hfa] 0 gm IH Q6HR PRN #1 hfa.aer.[id number] PRN Reason: Wheezing Azithromycin [IMW: Azithromycin] 250 mg PO DAILY #3 tab Fluticasone/Salmeterol [Advair 250-50] 1 puff INH BID #1 diskus predniSONE [Prednisone] 50 mg PO DAILY #3 tablet Home Medications: Home Meds Fexofenadine [Shavonne] 0 mg PO ASDIRECTED 09/08/17 [History] Nasocort 09/08/17 [History] Omeprazole 20 mg PO DAILY 09/08/17 [History] Albuterol Sulfate [Ventolin Hfa] 0 gm IH Q6HR PRN #1 hfa.aer.ad 09/12/17 [Rx] Azithromycin [IMW: Azithromycin] 250 mg PO DAILY #3 tab 09/12/17 [Rx] Fluticasone/Salmeterol [Advair 250-50] 1 puff INH BID #1 diskus 09/12/17 [Rx] predniSONE [Prednisone] 50 mg PO DAILY #3 tablet 09/12/17 [Rx] Patient Handouts: Asthma, Adult, [id number] Referrals: Armando Damon MD [Resident] - 09/22/17 2:30 pm - Patient Data Vitals - Most Recent: Last Vital Signs Temp 36.9 C 09/12/17 08:00 Pulse 93 09/12/17 08:00 Resp 14 09/12/17 08:00 BP 125/71 09/12/17 08:00 Pulse Ox 92 L 09/12/17 08:00 Weight - Most Recent: 91.263 kg I&O - Last 24 hours: Intake & Output 09/11/17 09/12/17 09/12/17 22:59 06:59 14:59 Intake Total 1800 740 Output Total 1800 850 Balance 0 -110 Med Orders - Current: Current Medications Acetaminophen (Tylenol) 650 mg PO Q4H PRN PRN Reason: Pain (Mild 1-3)/fever Last Admin: 09/12/17 06:34 Dose: 650 mg Albuterol/Ipratropium (Duoneb 3.0-0.5 Mg/3 Ml) 3 ml NEB Q4HRRT PRN PRN Reason: Shortness Of Breath/wheezing Last Admin: 09/09/17 10:25 Dose: 3 ml Albuterol/Ipratropium (Duoneb 3.0-0.5 Mg/3 Ml) 3 ml NEB Q4HRRT [facility] Last Admin: 09/12/17 10:12 Dose: 3 ml Azithromycin (Zithromax) 500 mg PO Q24H [facility] Last Admin: 09/12/17 09:51 Dose: 500 mg Enoxaparin Sodium (Lovenox) 30 mg SUBCUT Q24H [facility] Last Admin: 09/11/17 19:02 Dose: 30 mg Methylprednisolone Sodium Succinate (Solu-Medrol) 60 mg IVPUSH Q8H [facility] Last Admin: 09/12/17 06:00 Dose: 60 mg Ondansetron HCl (Zofran) 4 mg IVPUSH Q4H PRN PRN Reason: Nausea/Vomiting Sodium Chloride (Saline Flush) 10 ml FLUSH ASDIRECTED PRN PRN Reason: Keep Vein Open Last Admin: 09/08/17 06:07 Dose: 10 ml Sodium Chloride (Saline Flush) 2.5 ml FLUSH ASDIRECTED PRN PRN Reason: Keep Vein Open Last Admin: 09/09/17 14:37 Dose: 2.5 ml Sodium Chloride (Saline Flush) 10 ml FLUSH ASDIRECTED PRN PRN Reason: Keep Vein Open Sodium Chloride (Saline Flush) 2.5 ml FLUSH ASDIRECTED PRN PRN Reason: Keep Vein Open Discontinued Medications Albuterol/Ipratropium (Duoneb 3.0-0.5 Mg/3 Ml) 3 ml NEB ONETIME ONE Stop: 09/08/17 06:03 Last Admin: 09/08/17 06:08 Dose: 3 ml Sodium Chloride (Normal Saline) 1,000 mls @ 999 mls/hr IV STAT ONE Stop: 09/08/17 07:02 Last Admin: 09/08/17 06:07 Dose: 999 mls/hr Sodium Chloride (Normal Saline) 1,000 mls @ 150 mls/hr IV ASDIRECTED [facility] Last Admin: 09/08/17 07:04 Dose: 150 mls/hr Methylprednisolone Sodium Succinate (Solu-Medrol) 125 mg IVPUSH ONETIME ONE Stop: 09/08/17 06:03 Last Admin: 09/08/17 06:09 Dose: 125 mg Methylprednisolone Sodium Succinate (Solu-Medrol) 40 mg IVPUSH Q12H [facility] Last Admin: 09/08/17 10:53 Dose: Not Given Methylprednisolone Sodium Succinate (Solu-Medrol) 40 mg IVPUSH Q12H [facility] Last Admin: 09/09/17 05:38 Dose: 40 mg Prednisone (Prednisone) 40 mg PO WITHBREAKFAST [facility] Last Admin: 09/08/17 10:53 Dose: Not Given *Q Meaningful Use (DIS) - VTE *Q VTE Criteria *Q: - Stroke *Q Stroke Criteria *Q: - AMI *Q AMI Criteria *Q:
== END 2017-09-12 12:50 | disposition home or self-care (01) | DRG 141 ==
LOC: MW.ED 05:52 → MW.MS 06:28 → OBSVTOIN 09-10 10:27
PROVIDERS: ADMIT Internal Medicine; ATTEND Internal Medicine
DX: J45.901 Unspecified asthma with (acute) exacerbation (principal); R09.02 Hypoxemia; K21.9 Gastro-esophageal reflux disease without esophagitis; Z79.899 Other long term (current) drug therapy; Z88.0 Allergy status to penicillin
CPT/HCPCS: 36415; 71045; 71045-26; 80048; 80053; 83605; 85025; 87804; 93005; 94640; 96361; 96374; 96376; 99283; 99285-25; A9270-GY; G0378; J1650; J2920; J2930; J7040